=== PATIENT | male | born 1960 | race Caucasian/White ===

== ENCOUNTER → 2019-04-26 | Outpatient (CLI) | payer BC ==
--- NOTE | 2019-04-26 11:10 | RAD ---
EXAM: Chest, 2 views. HISTORY: Cough. COMPARISON: None. FINDINGS: 2 views of the chest are obtained. There is suspected linear atelectasis or scarring within the left lung base. There is no infiltrate, pleural effusion or pneumothorax. The heart is normal in size. IMPRESSION: Linear atelectasis or scarring within the left lung base. Electronically signed by: Lily Lincoln MD (04/26/2019 11:07 AM) [facility] – [place]
== END | disposition home or self-care (01) ==
LOC: DXRAD 10:11
PROVIDERS: ATTEND Specialist
DX: R05 Cough (principal)
CPT/HCPCS: 71046

== ENCOUNTER → 2019-10-20 | Outpatient (CLI) | payer BC ==
--- NOTE | 2019-10-20 09:26 | RAD ---
PROCEDURE: KNEE LEFT 3V CLINICAL INDICATION / HISTORY: Reason: LEFT KNEE PAIN / Spl. Instructions: / History: . TECHNIQUE: AP, oblique and lateral views of the left knee. COMPARISON: None FINDINGS: Osteophytic spurs on both the medial lateral femoral condyles as well as at the superior and inferior poles of the patella are present. No fracture or malalignment is seen. The soft tissues show minimal joint effusion. IMPRESSION: Mild tricompartmental left knee degenerative changes with a small joint effusion. No fracture or malalignment shown. Electronically signed by: Herberth Hedrick MD (10/20/2019 9:24 AM) [id number]
== END | disposition home or self-care (01) ==
LOC: DXRAD 08:11
PROVIDERS: ATTEND Orthopaedic Surgery
DX: M17.12 Unilateral primary osteoarthritis, left knee (principal); M25.462 Effusion, left knee; M25.761 Osteophyte, right knee
CPT/HCPCS: 73562

== ENCOUNTER 2019-11-18 21:15 | Emergency (ER) | payer BC, OTHER ==
[~2019-11-18] VITALS: Ht 180.3 cm; Wt 122.7 kg
[2019-11-18 21:30] VITALS: BP 147/76
--- NOTE | 2019-11-18 21:59 | PHYS DOC ---
Past History Past Medical History: Other Additional Past Medical Histor: PE Past Surgical History: Tonsillectomy, Other Additional Past Surgical Histo: CARPAL TUNNEL, CYST REMOVAL ON HAND &FOOT, PART OF LARGE INTESTINE REMOVED Alcohol Use: Occasionally General Adult EDM: Chief Complaint: UPPER EXTREMITY PAIN HPI: HPI: ".. I was working back on Nov.07, .and I was using a wrench to release a bolt... And all of a sudden I had a tearing pain in my right arm...". " I told my boss at [employer]. .. And I do have a follow-up with [employer] [facility].... But I got this weird coagulopathy or bleeding problem... 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 They do not have the problem... I take Eliquis 5 twice a day.. Because I will get clots.. It seemed to be doing okay but yesterday when I woke up my arm was more swollen and now more purple... I am worried I got a big old clot in my arm..." Patient is a 59 year old male who presents with above hx and complaints right upper arm pain and ecchymosis after injury at work on November 07. Patient has been compliant with his Eliquis for his underlying coagulopathy. Patient states initially had pain in arm but it seemed to resolve however upon activity last several days he noticed yesterday that he had increased pain and swelling ecchymosis. Patient is right-hand dominant. Distal neurovascular equal to left hand. Capillary refill equal to the left hand.. No history of fever or chills. Has obvious ecchymotic changes to the skin in the bicep area. Bedside ultrasound shows subcu hematoma. No obvious thrombus of radial artery or vein. There does appear possibly some findings of a bicep muscle tear. Patient is normally healthy with exception of his coagulopathy, hypertension, pulmonary embolisms, DVTs, partial colectomy. Has not taken any recent aspirin or anti- inflammatories. Does have planned follow-up with [facility]. No recent travel outside [facility]. No history of fever or chills. No history immunosuppression. Review of Systems: Review of Systems: Constitutional: Denies fever or chills Eyes: Denies change in visual acuity HENT: Denies nasal congestion or sore throat Respiratory: Denies cough or shortness of breath Cardiovascular: Denies chest pain or edema GI: Denies abdominal pain, nausea, vomiting, bloody stools or diarrhea : Denies dysuria Musculoskeletal: Denies back pain or joint pain Integument: Denies rash Neurologic: Denies headache, focal weakness or sensory changes Endocrine: Denies polyuria or polydipsia Lymphatic: Denies swollen glands Psychiatric: Denies depression or anxiety Heart Score: Risk Factors: Risk Factors: DM, Current or recent (<one month) smoker, HTN, HLP, family history of CAD, obesity. Risk Scores: Score 0 - 3: 2.5% MACE over next 6 weeks - Discharge Home Score 4 - 6: 20.3% MACE over next 6 weeks - Admit for Clinical Observation Score 7 - 10: 72.7% MACE over next 6 weeks - Early Invasive Strategies Family History: Family History: Noncontributory to presentation Current Medications: Current Meds: See nursing for home meds Allergies: Allergies: Allergies Coded Allergies Type Severity Reaction Last Updated Verified No Known Drug Allergies 11/18/19 No Physical Exam: PE: Constitutional: Well developed, well nourished, moderate distress, non-toxic appearance. [] HENT: Normocephalic, atraumatic, bilateral external ears normal, oropharynx moist, no oral exudates, nose normal. [] Eyes: PERRLA, EOMI, conjunctiva normal, no discharge. [] Neck: Normal range of motion, no tenderness, supple, no stridor. [] Cardiovascular:Heart rate regular rhythm, no murmur [] Lungs & Thorax: Bilateral breath sounds equal apex on auscultation [] Abdomen: Bowel sounds normal, soft, no tenderness, no masses, no pulsatile masses. Scar Skin: Warm, dry, no erythema, no rash. Except findings a significant ecchymotic changes in right upper bicep and arm.. No petechiae noted. No splinter hemorrhages noted. Back: No tenderness, no CVA tenderness. [] Extremities: Right bicep tenderness, no cyanosis, no clubbing, ROM intact, right bicep edema. [] Neurologic: Alert and oriented X 3, normal motor function, normal sensory function, no focal deficits noted. [] DTRs +2 patellar and brachial. Distal neurovascular intact. Patient is right-hand dominant. Psychologic: Affect anxious, judgement normal, mood normal. [] Current Patient Data: Vital Signs: Vital Signs Date Time Temp Pulse Resp B/P (MAP) Pulse Ox O2 Delivery O2 Flow Rate FiO2 11/18/19 21:30 99.7 86 18 147/76 (99) 95 Room Air EKG: EKG: [] Radiology/Procedures: Radiology/Procedures: [][place] [address] IMAGING REPORT Signed PATIENT: YASH PABLO ACCOUNT: [id number] : 1960 LOCATION: ER AGE: 59 SEX: M EXAM STATUS: REG ER ORD. PHYSICIAN: ANNABELLE LUNA MD REASON: injury at work, hemophilia, swelling PROCEDURE: HUMERUS RIGHT Exam: Right humerus 2 views INDICATION: Injury at work TECHNIQUE: Frontal and lateral views the right humerus Comparisons: None FINDINGS: Bone mineralization is normal. No acute or healed fractures. Soft tissues are unremarkable. Joint spaces are well-maintained. IMPRESSION: No acute osseous abnormality. Electronically signed by: Sera Rivers MD (11/18/2019 10:55 PM) [id number] DICTATED AND SIGNED BY: SERA RIVERS MD DATE: 11/18/19 2255 CC: ANNABELLE LUNA MD; BALDO OSULLIVAN MD ~ Course & Med Decision Making: Course & Med Decision Making Pertinent Labs and Imaging studies reviewed. (See chart for details) Use ice packs as needed. Consider holding Eliquis x2 doses. If concerned about pulmonary embolism and DVT would hold only 1 dose. Avoid any NSAIDs. Take only Tylenol for pain. Follow-up workman comp. Follow-up primary care. Return if any concerns. Recommend rest of arm, avoid ballistic type movements of right bicep. Impression: 1. Right bicep area hematoma 2. Suspect right bicep muscle tear 3. History of prothrombin mutation-coagulopathy 4. History of pulmonary embolisms and DVTs [] Dragon Disclaimer: Dragon Disclaimer: This electronic medical record was generated, in whole or in part, using a voice recognition dictation system. Departure Departure: Disposition: 01 HOME/RESIDENCE PRIOR TO ADM Condition: STABLE Referrals: BALDO OSULLIVAN MD (PCP) Justification of Admission: Justification of Admission: Justification of Admission Dx: N/A Dragon Disclaimer This chart was dictated in whole or in part using Voice Recognition software in a busy, high-work load, and often noisy Emergency Department environment. It may contain unintended and wholly unrecognized errors or omissions. Dragon Disclaimer This chart was dictated in whole or in part using Voice Recognition software in a busy, high-work load, and often noisy Emergency Department environment. It may contain unintended and wholly unrecognized errors or omissions. Dragon Disclaimer This chart was dictated in whole or in part using Voice Recognition software in a busy, high-work load, and often noisy Emergency Department environment. It may contain unintended and wholly unrecognized errors or omissions. ANNABELLE LUNA MD Nov 18, 2019 21:59
--- NOTE | 2019-11-18 22:58 | RAD ---
Exam: Right humerus 2 views INDICATION: Injury at work TECHNIQUE: Frontal and lateral views the right humerus Comparisons: None FINDINGS: Bone mineralization is normal. No acute or healed fractures. Soft tissues are unremarkable. Joint spaces are well-maintained. IMPRESSION: No acute osseous abnormality. Electronically signed by: Sera Aparicio MD (11/18/2019 10:55 PM) [id number]
== END 2019-11-18 22:59 | disposition home or self-care (01) ==
LOC: ER 21:15
DX: S40.021A Contusion of right upper arm, initial encounter (principal); Z79.01 Long term (current) use of anticoagulants; I10 Essential (primary) hypertension; Z86.711 Personal history of pulmonary embolism; Z86.718 Personal history of other venous thrombosis and embolism; X50.9XXA Other and unspecified overexertion or strenuous movements or postures, initial encounter; Y93.89 Activity, other specified; Y92.89 Other specified places as the place of occurrence of the external cause; Y99.8 Other external cause status
CPT/HCPCS: 73060; 99283